=== PATIENT | male | born 1995 | race Caucasian/White ===

== ENCOUNTER 2020-06-07 14:33 | Emergency (ER) | payer SELFPAY ==
[~2020-06-07] VITALS: Wt 95.3 kg
[2020-06-07] MEDS ORDERED: NAPROSYN500 MG PO (16:28)
[2020-06-07] MEDS ORDERED: METHOCARBAMOL500 M1 PO (16:28)
== END 2020-06-07 16:37 | disposition home or self-care (01) ==
LOC: ED 14:33
DX: S40.011A Contusion of right shoulder, initial encounter (principal); W01.0XXA Fall on same level from slipping, tripping and stumbling without subsequent striking against object, initial encounter; Y93.89 Activity, other specified; Y92.89 Other specified places as the place of occurrence of the external cause; Y99.8 Other external cause status